=== PATIENT | female | born 1985 | race Caucasian/White ===

== ENCOUNTER 2016-11-25 12:14 | Day surgery (SDC) | payer OTHER ==
[2016-11-25] MEDS ORDERED: PRENATAL VIT1 TAB PO (18:13)
[2016-11-25] MEDS ORDERED: ZANTAC 7575 MG PO (18:13)
[2016-11-25] MEDS ORDERED: NIPPLECREAM TP (18:14)
[2016-11-25] MEDS ORDERED: COLACE-DPS100 MG PO (18:14)
[2016-11-25] MEDS ORDERED: MOTRIN-DPS800 MG PO (18:14)
== END 2016-11-25 13:45 | disposition home or self-care (01) ==
LOC: SSS 12:14
PROC: 3E0S3GC Introduction of Other Therapeutic Substance into Epidural Space, Percutaneous Approach (ICD-10-PCS; principal; 2016-11-25)
DX: G97.1 Other reaction to spinal and lumbar puncture (principal); Z88.0 Allergy status to penicillin; Z88.6 Allergy status to analgesic agent; Z91.040 Latex allergy status